=== PATIENT | female | born 1970 | race Two or more races ===

== ENCOUNTER 2023-03-11 06:56 | Inpatient (IN) | payer SELFPAY ==
[~2023-03-11] VITALS: Ht 175.3 cm; Wt 123.0 kg
[2023-03-11 08:16] LABS: Basophils # (auto) 0.1 10 ^3/uL (0-0.2); Basophils % (auto) 0.4 % (0.0-2.0); Eosinophils # (auto) 0 10 ^3/uL (0-0.8); Eosinophils % (auto) 0.1 % (0.0-7.0); Hematocrit 38.9 % (36.0-46.0); Hemoglobin 13.2 g/dL (12.2-16.2); Lymphocytes # (auto) 1.9 10 ^3/uL (0.4-5.4); Lymphocytes % (auto) 11.1 % (10.0-50.0); Mean Corpuscular Hemoglobin 29.4 pg (28.0-32.0); Mean Corpuscular Hgb Conc. 33.9 g/dL (32.0-36.0); Mean Corpuscular Volume 86.6 fL (80.0-100.0); Monocytes # (auto) 0.8 10 ^3/uL (0-1.3); Monocytes % (auto) 4.6 % (0.0-12.0); Neutrophils # (auto) 14.2 10 ^3/uL (1.6-8.6); Neutrophils % (auto) 83.8 % (37.0-80.0); Nucleated Red Blood Cells % 0.2 %; Red Cell Distribution Width 15.7 % (11.8-14.3)
[2023-03-11 08:46] LABS: Potassium 3.9 mmol/L (3.5-5.1)
[2023-03-11 09:04] LABS: Albumin 3.4 g/dL (3.4-5.0); BUN/Creatinine Ratio 13.5 (10.0-20.0); Bilirubin, Total 0.7 mg/dL (0.2-1.0); Calcium 8.8 mg/dL (8.7-10.4)
[2023-03-11 09:20] LABS: Urine Bacteria NONE SEEN /hpf (None Seen); Urine Budding Yeast LOADED /hpf (None Seen); Urine WBC 187 /hpf (0 - 5); Urine WBC Clumps PRESENT /hpf (None Seen)
[2023-03-11 09:21] LABS: Urine Protein, UAD 1+ (Negative)
[2023-03-11 09:22] LABS: Urine Color Red (Yellow)
[2023-03-11 09:48] LABS: Urine Specific Gravity 1.029 (1.001-1.035)
[2023-03-11 09:49] LABS: Urine Clarity Cloudy (Clear); Urine Urobilinogen Normal (Negative)
[2023-03-11 09:50] LABS: Urine Blood 1+ /uL (Negative)
[2023-03-11] MEDS ORDERED: CEFTRIAXONE SODIUM 2 GM in D5W 5% 100 ML IV ONE (12:30)
[2023-03-11] MEDS ORDERED: KETOROLAC TROMETH 30 MG/ML 1ML VIAL IV ONE (12:30)
[2023-03-11] MEDS ORDERED: ACETAMINOPHEN 325 MG TAB PO PRN (16:30)
[2023-03-11] MEDS ORDERED: HYDROcodone-ACET 5/325MG TAB PO PRN (16:30)
[2023-03-11] MEDS ORDERED: traMADol HCL 50 MG TAB PO PRN (16:30)
[2023-03-11] MEDS ORDERED: FLUCONAZOLE 100 MG TAB PO ONE (17:00)
[2023-03-11] MEDS ORDERED: SODIUM CHLORIDE 0.9% 1,000 ML IV ONE (17:00)
[2023-03-12 01:40] VITALS: PULSE 88; RESP 17; O2SAT 93
[2023-03-12 05:10] VITALS: PULSE 91; RESP 18
[2023-03-12 06:15] LABS: Basophils # (auto) 0 10 ^3/uL (0-0.2); Basophils % (auto) 0.2 % (0.0-2.0); Eosinophils # (auto) 0 10 ^3/uL (0-0.8); Eosinophils % (auto) 0.2 % (0.0-7.0); Hematocrit 33.5 % (36.0-46.0); Hemoglobin 11.4 g/dL (12.2-16.2); Lymphocytes # (auto) 1.4 10 ^3/uL (0.4-5.4); Lymphocytes % (auto) 14.1 % (10.0-50.0); Mean Corpuscular Hemoglobin 29.7 pg (28.0-32.0); Mean Corpuscular Volume 87.3 fL (80.0-100.0); Monocytes # (auto) 0.5 10 ^3/uL (0-1.3); Neutrophils # (auto) 7.9 10 ^3/uL (1.6-8.6); Neutrophils % (auto) 80.5 % (37.0-80.0); Red Blood Cells 3.84 10^6/uL (4.0-5.20); Red Cell Distribution Width 15.6 % (11.8-14.3); White Blood Cell 9.8 10^3/uL (4.4-10.8)
[2023-03-12 06:40] LABS: Alanine Aminotransferase 14 U/L (7-40); Albumin 4.1 g/dL (3.2-4.8); Alkaline Phosphatase 66 U/L (46-116); Anion Gap 8.8 (5-15); Aspartate Aminotransferase 14 U/L (13-40); BUN/Creatinine Ratio 19.3 (10.0-20.0); Blood Urea Nitrogen 17 mg/dL (9-23); Calcium 8.6 mg/dL (8.7-10.4); Carbon Dioxide 23.2 mmol/L (20-30); Chloride 105 mmol/L (98-107); Glucose 108 mg/dL (74-106); Potassium 3.5 mmol/L (3.5-5.1); Sodium 137 mmol/L (136-145)
[2023-03-12 06:41] LABS: Bilirubin, Total 0.5 mg/dL (0.2-1.0); Total Protein 6.9 g/dL (5.7-8.2)
[2023-03-12] MEDS: cefTRIAXone 1GM/50ML D5W 50 ML IV SCH (11:24)
[2023-03-12 15:09] VITALS: PULSE 91; RESP 18
[2023-03-12 16:50] VITALS: BP 117/74; PULSE 91; RESP 18; TEMP 99.1; O2SAT 96
[2023-03-12 20:10] VITALS: BP 96/51; PULSE 75; RESP 14; TEMP 98.1; O2SAT 97
[2023-03-12 22:00] VITALS: BP 96/51; PULSE 75; RESP 14; TEMP 98.1; O2SAT 97
[2023-03-13 05:00] VITALS: BP 98/57; PULSE 84; RESP 16; TEMP 98.4; O2SAT 97
[2023-03-13 06:17] LABS: Basophils # (auto) 0 10 ^3/uL (0-0.2); Basophils % (auto) 0.6 % (0.0-2.0); Eosinophils # (auto) 0.1 10 ^3/uL (0-0.8); Eosinophils % (auto) 1.2 % (0.0-7.0); Hematocrit 32.2 % (36.0-46.0); Hemoglobin 11.1 g/dL (12.2-16.2); Lymphocytes # (auto) 1.2 10 ^3/uL (0.4-5.4); Lymphocytes % (auto) 16.2 % (10.0-50.0); Mean Corpuscular Hemoglobin 30.1 pg (28.0-32.0); Mean Corpuscular Hgb Conc. 34.4 g/dL (32.0-36.0); Mean Corpuscular Volume 87.6 fL (80.0-100.0); Monocytes # (auto) 0.4 10 ^3/uL (0-1.3); Neutrophils # (auto) 5.6 10 ^3/uL (1.6-8.6); Red Blood Cells 3.67 10^6/uL (4.0-5.20); Red Cell Distribution Width 15.3 % (11.8-14.3); White Blood Cell 7.3 10^3/uL (4.4-10.8)
[2023-03-13 06:24] LABS: Chloride 108 mmol/L (98-107); Potassium 4.1 mmol/L (3.5-5.1); Sodium 141 mmol/L (136-145)
[2023-03-13 06:25] LABS: Anion Gap 7.3 (5-15); Carbon Dioxide 25.7 mmol/L (20-30)
[2023-03-13 06:26] LABS: Calcium 8.5 mg/dL (8.5-10.1)
[2023-03-13 06:30] LABS: BUN/Creatinine Ratio 22.2 (10.0-20.0); Blood Urea Nitrogen 16 mg/dL (9-23); Glucose 105 mg/dL (74-106)
[2023-03-13 07:54] VITALS: BP 96/51; PULSE 75; RESP 14; TEMP 98.1
[2023-03-13 08:00] VITALS: PULSE 83; RESP 18; O2SAT 96
[2023-03-13 09:00] VITALS: BP 120/69; PULSE 83; RESP 18; TEMP 98.2; O2SAT 96
[2023-03-13] MEDS: cefTRIAXone 1GM/50ML D5W 50 ML IV SCH (09:22)
[2023-03-13] MEDS ORDERED: NITR-52 PO (11:36)
== END 2023-03-13 15:05 | disposition home or self-care (01) | DRG 872 ==
LOC: ER 06:56 → OVERFLOW 16:52 → WEST WING 03-12 14:19
PROVIDERS: ADMIT Internal Medicine Pulmonary Disease
DX: A41.9 Sepsis, unspecified organism (principal); B37.31 Acute candidiasis of vulva and vagina; D25.9 Leiomyoma of uterus, unspecified; E66.9 Obesity, unspecified; G89.29 Other chronic pain; N30.90 Cystitis, unspecified without hematuria; D64.9 Anemia, unspecified; M51.9 Unspecified thoracic, thoracolumbar and lumbosacral intervertebral disc disorder; N20.0 Calculus of kidney; Z80.6 Family history of leukemia; Z82.49 Family history of ischemic heart disease and other diseases of the circulatory system; Z83.3 Family history of diabetes mellitus; Z90.49 Acquired absence of other specified parts of digestive tract; Z91.040 Latex allergy status; Z68.39 Body mass index [BMI] 39.0-39.9, adult
CPT/HCPCS: 36415; 72131; 74176; 76856; 80048; 80053; 81001; 81025; 83605; 84702; 85025; 86850; 86900; 86901; 87040; 87086; G0378; J0696; J1885; J7060